=== PATIENT | female | born 2000 | race Caucasian/White ===

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

== ENCOUNTER 2019-10-10 18:07 | Emergency (ER) | payer BC, OTHER ==
[2019-10-10] MEDS ORDERED: Acetaminophen/HYDROcodone 325-5 MG Tab PO ONE (18:08)
--- NOTE | 2019-10-10 18:10 | EDM.PDOC ---
<Keith Cano E - Last Filed: 10/10/19 18:43> ED HPI GENERAL MEDICAL PROBLEM - General Chief Complaint: Abdominal Pain Stated Complaint: rt flank pain Time Seen by Provider: 10/10/19 18:40 Source of Information: Reports: Patient, RN Notes Reviewed - History of Present Illness INITIAL COMMENTS - FREE TEXT/NARRATIVE: 19 yo F who was brought to the ER from urgent care clinic with Right Flank pain , dysuria, Fever and generalized weakness. Patient has prior h/o Kidney stone. Over the past 1 week she has been having urinary symptoms with increased frequency of micturition and dysuria. Today she developed acute right Flank pain which she rates as 9/10 in severity associated with fever. Went to urgent care clinic today where she had an episode of non bilious, non bloody vomitus. Found to be tachycardic and Temp spike. Patient was brought to the ER for further evaluation. - Related Data Allergies Allergy/AdvReac Type Severity Reaction Status Date / Time amoxicillin Allergy Unknown unknown Verified 11/17/18 21:30 Penicillins Allergy Unknown unknown Verified 11/17/18 21:30 Home Meds: Home Meds Albuterol Sulfate [Albuterol Sulfate Hfa] PRN 11/17/18 [History] Rizatriptan [Maxalt SUPPLIER DEVELOPMENT MANAGER] 10 mg PO 11/17/18 [History] Acetaminophen/HYDROcodone [Milton 325-5 MG] 1 - 2 tab PO Q4H PRN #10 tab [Rx] Levofloxacin [Levaquin] 500 mg PO DAILY #10 tablet 10/10/19 [Rx] Ondansetron [Zofran ODT] 4 mg PO Q4H PRN #5 tab.dis 10/10/19 [Rx] Past Medical History Cardiovascular History: Reports: Aneurysm, Other (See Below) Other Cardiovascular History: brain aneurysm Respiratory History: Reports: Asthma 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 ) Eye Exam: Bilateral Eye: EOMI Ear Exam: Bilateral Ear: Auricle Normal, Canal Normal Nose: Normal Inspection, Normal Mucosa Throat/Mouth: Normal Inspection, Normal Lips, Normal Teeth, Normal Gums, Normal Oropharynx Head: Atraumatic, Normocephalic Neck: Normal Inspection, Supple Respiratory/Chest: No Respiratory Distress, Lungs Clear Cardiovascular: Normal Peripheral Pulses, Regular Rate, Rhythm, No Edema, No JVD GI/Abdominal: Normal Bowel Sounds, Soft, No Organomegaly, No Distention, Other ( Right Flank/CVA tenderness) Back Exam: CVA Tenderness (R) Extremities: Normal Inspection, Normal Range of Motion, Non-Tender, No Pedal Edema Neurological: Alert, Oriented, CN II-XII Intact, Normal Cognition Psychiatric: Normal Affect, Normal Mood Skin Exam: Warm Course - Vital Signs Last Recorded V/S: Last Vital Signs Temp 38.8 C H 10/10/19 18:16 Pulse 107 H 10/10/19 21:13 Resp 17 10/10/19 21:13 BP 124/73 10/10/19 21:13 Pulse Ox 96 10/10/19 21:13 - Orders/Labs/Meds Labs: Laboratory Tests 10/10/19 10/10/19 10/10/19 Range/Units 18:25 18:25 18:25 WBC 14.5 H (4.5-12.0) X10-3/uL RBC 4.83 (3.23-5.20) x10(6)uL Hgb 14.2 (11.5-15.5) g/dL Hct 42.5 (30.0-51.3) % MCV 88.1 (80-96) fL MCH 29.4 (27.7-33.6) pg MCHC 33.4 (32.2-35.4) g/dL RDW 11.8 (11.5-15.5) % Plt Count 216 (125-369) X10(3)uL MPV 8.2 (7.4-10.4) fL Add Manual Diff Yes Neutrophils % (Manual) 80 (46-82) % Band Neutrophils % 1 (0-6) % Lymphocytes % (Manual) 8 L (13-37) % Monocytes % (Manual) 9 (4-12) % Eosinophils % (Manual) 1 (0-5) % Basophils % (Manual) 1 (0-2) % Sodium 139 (135-145) mmol/L Potassium 3.7 (3.5-5.3) mmol/L Chloride 102 (100-110) mmol/L Carbon Dioxide 27 (21-32) mmol/L BUN 9 (7-18) mg/dL Creatinine 0.8 (0.55-1.02) mg/dL Est Cr Clr Drug Dosing TNP Estimated GFR (MDRD) > 60 (>60) BUN/Creatinine Ratio 11.3 (9-20) Glucose 94 (80-116) mg/dL Lactic Acid (0.4-2.0) mmol/L Calcium 9.4 (8.6-10.2) mg/dL Total Bilirubin 0.8 (0.1-1.3) mg/dL AST 13 (5-25) IU/L ALT 17 (12-36) U/L Alkaline Phosphatase 81 (56-112) IU/L C-Reactive Protein 4.9 H* (0.5-0.9) mg/dL Total Protein 7.9 (6.0-8.0) g/dL Albumin 4.6 (3.5-5.2) g/dL Globulin 3.3 g/dL Albumin/Globulin Ratio 1.4 Urine Color (YELLOW) Urine Appearance (CLEAR) Urine pH (5.0-6.5) Ur Specific Duncan (1.010-1.025) Urine Protein (NEGATIVE) mg/dL Urine Glucose (UA) (NORMAL) mg/dL Urine Ketones (NEGATIVE) mg/dL Urine Occult Blood (NEGATIVE) Urine Nitrite (NEGATIVE) Urine Bilirubin (NEGATIVE) Urine Urobilinogen (NEGATIVE) mg/dL Ur Leukocyte Esterase (NEGATIVE) Urine RBC (0-5) Urine WBC (0-5) Ur Squamous Epith Cells (NS,R,O) Urine Bacteria (NS) Urine Mucus (NS) Urine HCG, Qual (NEGATIVE) 10/10/19 10/10/19 10/10/19 Range/Units 18:25 18:27 18:27 WBC (4.5-12.0) X10-3/uL RBC (3.23-5.20) x10(6)uL Hgb (11.5-15.5) g/dL Hct (30.0-51.3) % MCV (80-96) fL MCH (27.7-33.6) pg MCHC (32.2-35.4) g/dL RDW (11.5-15.5) % Plt Count (125-369) X10(3)uL MPV (7.4-10.4) fL Add Manual Diff Neutrophils % (Manual) (46-82) % Band Neutrophils % (0-6) % Lymphocytes % (Manual) (13-37) % Monocytes % (Manual) (4-12) % Eosinophils % (Manual) (0-5) % Basophils % (Manual) (0-2) % Sodium (135-145) mmol/L Potassium (3.5-5.3) mmol/L Chloride (100-110) mmol/L Carbon Dioxide (21-32) mmol/L BUN (7-18) mg/dL Creatinine (0.55-1.02) mg/dL Est Cr Clr Drug Dosing Estimated GFR (MDRD) (>60) BUN/Creatinine Ratio (9-20) Glucose (80-116) mg/dL Lactic Acid 1.1 (0.4-2.0) mmol/L Calcium (8.6-10.2) mg/dL Total Bilirubin (0.1-1.3) mg/dL AST (5-25) IU/L ALT (12-36) U/L Alkaline Phosphatase (56-112) IU/L C-Reactive Protein (0.5-0.9) mg/dL Total Protein (6.0-8.0) g/dL Albumin (3.5-5.2) g/dL Globulin g/dL Albumin/Globulin Ratio Urine Color Yellow (YELLOW) Urine Appearance Cloudy (CLEAR) Urine pH 5.0 (5.0-6.5) Ur Specific Duncan 1.015 (1.010-1.025) Urine Protein 30 H (NEGATIVE) mg/dL Urine Glucose (UA) Normal (NORMAL) mg/dL Urine Ketones 150 H (NEGATIVE) mg/dL Urine Occult Blood Large H (NEGATIVE) Urine Nitrite Positive H (NEGATIVE) Urine Bilirubin Negative (NEGATIVE) Urine Urobilinogen Normal (NEGATIVE) mg/dL Ur Leukocyte Esterase Large H (NEGATIVE) Urine RBC 20-30 H (0-5) Urine WBC >100 H (0-5) Ur Squamous Epith Cells Few H (NS,R,O) Urine Bacteria Many H (NS) Urine Mucus Moderate H (NS) Urine HCG, Qual Negative (NEGATIVE) Meds: Medications Discontinued Medications Generic Name Dose Route Start Last Admin Trade Name My PRN Reason Stop Dose Admin Hydrocodone Bitart/Acetaminophen 4 tab 10/10/19 18:08 Milton 325-5 Mg PO 10/10/19 18:09 .STK-MED ONE Sodium Chloride 1,000 mls @ 1,000 mls/hr 10/10/19 18:21 10/10/19 19:13 Normal Saline IV 10/10/19 19:20 1,000 mls/hr .BOLUS ONE Administration Levofloxacin 750 mg 10/10/19 20:03 10/10/19 20:15 Levaquin PO 10/10/19 20:04 750 mg NOW STA Administration Morphine Sulfate 2 mg 10/10/19 18:20 10/10/19 19:04 Morphine IVPUSH 10/10/19 18:21 2 mg ONETIME ONE Administration Ondansetron HCl 4 mg 10/10/19 18:20 10/10/19 19:21 Zofran IVPUSH 10/10/19 18:21 4 mg ONETIME ONE Administration Departure - Departure Disposition: Home, Self-Care 01 Condition: Good Clinical Impression: Acute flank pain - Discharge Information Prescriptions: Acetaminophen/HYDROcodone [Milton 325-5 MG] 1 - 2 tab PO Q4H PRN #10 tab PRN Reason: Pain Levofloxacin [Levaquin] 500 mg PO DAILY #10 tablet Ondansetron [Zofran ODT] 4 mg PO Q4H PRN #5 tab.dis PRN Reason: Nausea Instructions: Kidney Stones, [id number], Flank Pain, Adult, [id number] Referrals: PCP,None [Primary Care Provider] - Forms: ED Department Discharge Additional Instructions: please read discharge instructions on pyelonephritis increase oral fluids at least 2 liters a day norco 5/325,1-2 tablets every 4-6 hours as needed for pain levaquin 500 mg daily for 10 days zofran odt 4 mg every 4 hours as needed for pain follow up next week Sepsis Event Note - Focused Exam Date Exam was Performed: 10/10/19 Time Exam was Performed: 18:43 <Shon Barnes - Last Filed: 10/12/19 13:50> ED HPI GENERAL MEDICAL PROBLEM - General Source of Information: Reports: Patient, RN Notes Reviewed Right Middle Flank Pain Score (Numeric/FACES): 8 ED ROS GENERAL - Review of Systems Review Of Systems: See Below Constitutional: Reports: No Symptoms HEENT: Reports: No Symptoms Respiratory: Reports: No Symptoms Cardiovascular: Reports: No Symptoms Endocrine: Reports: No Symptoms GI/Abdominal: Reports: Abdominal Pain, Nausea Musculoskeletal: Reports: No Symptoms Skin: Reports: No Symptoms ED EXAM, GENERAL - Physical Exam Exam: See Below Exam Limited By: No Limitations General Appearance: Alert, No Apparent Distress Ears: Normal External Exam Nose: Normal Inspection, Normal Mucosa Throat/Mouth: Normal Inspection, Normal Lips, Normal Teeth Head: Atraumatic, Normocephalic Neck: Normal Inspection, Supple Respiratory/Chest: No Respiratory Distress, Lungs Clear, Normal Breath Sounds Cardiovascular: Normal Peripheral Pulses, Regular Rate, Rhythm, No Edema GI/Abdominal: Normal Bowel Sounds, Soft, Non-Tender, No Organomegaly Back Exam: Normal Inspection, Full Range of Motion Course - Vital Signs Text/Narrative:: Labs/Abd CT was discussed with patient and verbalized full understanding NS 1 L bolus Zofran 4 mg IV x1 Morphine 2 mg IV x1 Levaquin 750 mg po x1 Departure - Departure Time of Disposition: 20:30 Sepsis Event Note - Focused Exam Date Exam was Performed: 10/12/19 Time Exam was Performed: 13:48
[2019-10-10] MEDS ORDERED: Ondansetron 4 MG/2 ML SDV IVPUSH ONE (18:20)
[2019-10-10] MEDS ORDERED: Morphine 2 MG/ML Syringe IVPUSH ONE (18:20)
[2019-10-10] MEDS ORDERED: Sodium Chloride 0.9% 1,000 ML IV ONE (18:21)
[2019-10-10] MEDS ORDERED: Levofloxacin 750 MG Tab PO STA (20:03)
== END 2019-10-10 20:28 | disposition home or self-care (01) ==
LOC: FB.ED 18:07
DX: R10.9 Unspecified abdominal pain (principal); J45.909 Unspecified asthma, uncomplicated; Z88.1 Allergy status to other antibiotic agents; Z88.0 Allergy status to penicillin; Z79.899 Other long term (current) drug therapy
CPT/HCPCS: 36415; 74176; 80053; 81001; 81025; 83605; 85025; 86140; 87040; 87086; 87088; 87186; 96361; 96374; 96375; 99285; A9270; J2270; J2405; J7030

== ENCOUNTER 2022-05-15 15:55 | Emergency (ER) | payer BC ==
[2022-05-15] MEDS ORDERED: Sodium Chloride 0.9% 10 ML Syringe FLUSH PRN (16:25)
[2022-05-15] MEDS ORDERED: Ondansetron 4 MG/2 ML SDV IVPUSH ONE (16:25)
[2022-05-15] MEDS ORDERED: Promethazine 25 MG/ML SDV IM STA (16:26)
[2022-05-15] MEDS ORDERED: Sodium Chloride 0.9% 1,000 ML IV SCH (16:30)
[2022-05-15 17:24] LABS: ESTIMATED GFR 143 mL/min (>60)
== END 2022-05-15 18:28 | disposition home or self-care (01) ==
LOC: FB.ED 15:55
DX: O21.0 Mild hyperemesis gravidarum (principal); Z3A.13 13 weeks gestation of pregnancy; Z88.0 Allergy status to penicillin; Z88.1 Allergy status to other antibiotic agents
CPT/HCPCS: 36415; 80048; 81001; 85025; 96361; 96372; 96374; 99284-25; J2405; J2550; J7030

== ENCOUNTER 2022-08-23 02:17 | Emergency (ER) | payer BC ==
[2022-08-23] MEDS ORDERED: Sodium Chloride 0.9% 10 ML Syringe FLUSH PRN (02:45)
[2022-08-23] MEDS ORDERED: Ondansetron 4 MG/2 ML SDV IVPUSH ONE (02:48)
[2022-08-23] MEDS ORDERED: Sodium Chloride 0.9% 1,000 ML IV SCH (03:00)
[2022-08-23] MEDS ORDERED: Dextrose 5%-0.45% NaCl 1,000 ML IV SCH (05:00)
[2022-08-23] MEDS ORDERED: Metoclopramide 10 MG/2 ML SDV IVPUSH ONE (05:00)
[2022-08-23] MEDS ORDERED: Hydrocortisone Sodium Succinate 250 MG/2 ML SDV IV ONE (05:42)
[2022-08-23 06:10] LABS: APPEARANCE,URINE CLEAR (CLEAR); BILIRUBIN,URINE NEGATIVE (NEGATIVE); COLOR,URINE YELLOW (YELLOW); GLUCOSE,URINE NORMAL (NORMAL); KETONES,URINE 50 mg/dL (NEGATIVE); NITRITE,URINE NEGATIVE (NEGATIVE); OCCULT BLOOD,URINE NEGATIVE (NEGATIVE); PROTEIN,URINE NEGATIVE (NEGATIVE); UROBILINOGEN,URINE NORMAL (NEGATIVE)
[2022-08-23 06:11] LABS: BACTERIA,URINE RARE (NS); EPITHELIAL CELLS,URINE OCCASIONAL; LEUKOCYTE ESTERASE,URINE NEGATIVE (NEGATIVE); RBC,URINE 0-5 (0-5); WBC,URINE 0-5 (0-5)
[2022-08-23 06:12] LABS: BASOPHILS PERCENT AUTO 0.3 % (0.2-1.5); HEMATOCRIT 36.9 % (34.2-48.2); HEMOGLOBIN 12.3 g/dL (11.4-15.5); LYMPHOCYTES ABSOLUTE AUTO 0.3 x10-3/uL (1.0-4.4); LYMPHOCYTES PERCENT AUTO 2.7 % (18.4-52.1); MEAN CORPUSCULAR HEMOGLOBIN 29.3 pg (23.9-33.9); MEAN CORPUSCULAR HGB CONC 33.4 g/dL (31.9-34.8); MEAN CORPUSCULAR VOLUME 87.8 fL (76.7-100.5); MEAN PLATELET VOLUME 7.8 fL (7.1-12.4); MONOCYTES ABSOLUTE AUTO 0.3 x10-3/uL (0.3-1.0); MONOCYTES PERCENT AUTO 2.1 % (4.4-15.7); NEUTROPHILS ABSOLUTE AUTO 12.4 x10-3/uL (1.5-6.3); NEUTROPHILS PERCENT AUTO 94.9 % (30.8-76.2); PLATELET COUNT,PLT 327 x10(3)uL (151-488); RED BLOOD CELL COUNT 4.21 x10(6)uL (3.60-5.20); RED CELL DISTRIBUTION WIDTH 12.9 % (12.3-16.5)
[2022-08-23] MEDS ORDERED: Hydrocortisone Sodium Succinate 100 MG/2 ML SDV IVPUSH ONE (06:13)
[2022-08-23] MEDS: Hydrocortisone Sodium Succinate 100 MG/2 ML SDV ONE ×3 (06:14→06:15)
[2022-08-23 06:15] LABS: BLOOD UREA NITROGEN,BUN 9 mg/dL (7-18); CALCIUM 8.3 mg/dL (8.6-10.2); CARBON DIOXIDE,CO2 23 mmol/L (21-32); CHLORIDE,CL 103 mmol/L (100-110); CREATININE 0.6 mg/dL (0.55-1.02); EST CRCL DRUG DOSING (CG) 136.51 mL/min; ESTIMATED GFR 129 mL/min (>60); GLUCOSE RANDOM 199 mg/dL (80-116); POTASSIUM,K 3.7 mmol/L (3.5-5.3); SODIUM,NA 138 mmol/L (135-145)
[2022-08-23 06:21] LABS: A/G RATIO 0.6; ALANINE AMINOTRANSFERASE,ALT 24 U/L (12-36); ALBUMIN 2.6 g/dL (3.5-5.2); ALKALINE PHOSPHATASE 156 IU/L (56-112); ASPARTATE AMNIOTRANSFERASE,AST 18 IU/L (5-25); BILIRUBIN TOTAL 0.4 mg/dL (0.1-1.3)
== END 2022-08-23 06:25 | disposition home or self-care (01) ==
LOC: FB.ED 02:17
DX: O21.0 Mild hyperemesis gravidarum (principal); J45.909 Unspecified asthma, uncomplicated; Z88.0 Allergy status to penicillin; Z88.1 Allergy status to other antibiotic agents
CPT/HCPCS: 36415; 80053; 81001; 85025; 96361; 96374; 96375; 99283; 99284; J1720; J2405; J2765; J3490; J7030; J7042